=== PATIENT | female | born 1995 | race Caucasian/White ===

== ENCOUNTER 2017-01-14 11:50 | Emergency (ER) | payer BC ==
--- NOTE | 2017-01-14 12:11 | CPEKG ---
Heart Rate: 111 RR Interval: 541 P-R Interval: 132 QRSD Interval: 76 QT Interval: 328 QTC Interval: 446 P Taft: 67 QRS Taft: 82 T Wave Taft: 39 EKG Severity - OTHERWISE NORMAL ECG - EKG Impression: SINUS TACHYCARDIA Electronically Signed By: Cheng Gilbert 15-Jan-2017 10:04:16
[2017-01-14 12:32] LABS: % IMMATURE GRANULYOCYTES 0.3 % (0.0-1.1); ABSOLUTE IMMATURE GRANULOCYTES 0.04 10^3/uL (0.00-0.10); ADD DIFF? NO; ADD MORPH? NO; ADD SCAN? NO; ATYPICAL LYMPHOCYTE FLAG 10 (0-99); FRAGMENT RBC FLAG 0 (0-99); HEMATOCRIT 45.9 % (38.0-47.0); HEMOGLOBIN 15.8 g/dL (12.6-16.3); LEFT SHIFT FLG 0 (0-99); LIPEMIA HEMOLYSIS FLAG 90 (0-99); MEAN CELL HEMOGLOBIN 29.2 pg (27.9-34.1); MEAN CELL HEMOGLOBIN CONCENTR. 34.4 g/dL (32.4-36.7); MEAN CELL VOLUME 84.8 fL (81.5-99.8); PLATELET CLUMPS FLAG 0 (0-99); PLATELET COUNT 279 10^3/uL (150-400); RED BLOOD CELL COUNT 5.41 10^6/uL (4.18-5.33); RED CELL DISTRIBUTION WIDTH 12.9 % (11.5-15.2)
[2017-01-14 13:17] LABS: TROPONIN I < 0.012 ng/mL (0-0.034)
[2017-01-14 13:52] LABS: ANION GAP 13 mEq/L (8-16); CALCIUM 10.2 mg/dL (8.5-10.4); CARBON DIOXIDE 20 mEq/l (22-31); CHLORIDE 109 mEq/L (97-110); CREATININE 0.7 mg/dL (0.6-1.0); GLOMERULAR FILTRATION RATE > 60; GLUCOSE 94 mg/dL (70-100); POTASSIUM 4.3 mEq/L (3.5-5.2); SODIUM 142 mEq/L (134-144)
[2017-01-14] MEDS ORDERED: IOPAMIDOL (ISOVUE-370) 150 ML BTL IV ONE (14:14)
[2017-01-14 14:22] VITALS: RESP 20
--- NOTE | 2017-01-14 15:10 | EDPHY ---
H & P Stated Complaint: CHEST PAIN AND PAIN DOWN L ARM SINCE LAST NIGHT SENT FROM [facility] – [place], [place] Time Seen by Provider: 01/14/17 12:06 HPI/ROS: Chief complaint: Chest pain History of present illness: This is a 21-year-old female who presents to the emergency department for evaluation of chest pain. Patient reports the onset of symptoms yesterday. Symptoms have been persistent. She describes a sharp pain in the left upper part of the chest. It is worse with deep breathing. She has had associated trouble breathing. She denies specific precipitating factors. She denies alleviating factors. She denies other associated signs or symptoms including no fevers or cold-like symptoms, no nausea, vomiting or diarrhea, no abdominal pain, no pain or swelling in the legs. She has never had similar. Review of systems: A 10 point review of systems was obtained and other than described above is negative - Personal History LMP (Females 10-55): Extended Cycle BCP/Inj Current Tetanus/Diphtheria Vaccine: Yes Current Tetanus Diphtheria and Acellular Pertussis (TDAP): Yes - Medical/Surgical History Hx Asthma: No Hx Chronic Respiratory Disease: No Hx Diabetes: No Hx Cardiac Disease: No Hx Renal Disease: No Hx Cirrhosis: No Hx Alcoholism: No Hx HIV/AIDS: No Hx Splenectomy or Spleen Trauma: No Other PMH: DENIES - Social History Smoking Status: Never smoked - Physical Exam Exam: General Appearance: Alert, nontoxic. Eyes: Pupils equal and round no pallor or injection. ENT, Mouth: Mucous membranes moist. Respiratory: There are no retractions, lungs are clear to auscultation. Cardiovascular: Regular rate and rhythm. Gastrointestinal: Abdomen is soft and nontender, no masses, bowel sounds normal. Neurological: Alert and oriented x4. Strength and sensation intact and symmetrical. Skin: Warm and dry, no rashes. Musculoskeletal: Neck is supple nontender. Extremities are symmetrical, full range of motion. Psychiatric: Patient is tearful and appears very anxious Constitutional: Initial Vital Signs Temperature (C) 36.7 C 01/14/17 11:58 Heart Rate 108 H 01/14/17 11:58 Respiratory Rate 18 01/14/17 11:58 Blood Pressure 128/65 H 01/14/17 11:58 O2 Sat (%) 96 01/14/17 11:58 O2 Delivery Mode Room Air Allergies/Adverse Reactions: No Known Allergies Allergy (Unverified 01/14/17 12:01) Home Medications: Medication Instructions Recorded Control Implant 01/14/17 Hydrocodone/APAP 325 [[place] 1 tab PO Q4 #6 tab 01/14/17 5325 (*)] Medical Decision Making - Diagnostics Imaging: CTA of the chest is negative for acute findings, left upper lobe nodule is noted ED Course/Re-evaluation: Patient discussed with my secondary supervising physician Dr. Reese Mohr. Patient presents to the emergency department for evaluation of chest pain. On presentation she is nontoxic. She is very anxious. Vital signs show mild tachycardia otherwise stable. Blood studies are obtained, leukocytosis of 15, 000 is noted of unclear significance. D-dimer is mildly elevated. Therefore CTA of the chest is obtained and negative for acute PE. EKG unremarkable. I have discussed with patient is not clear as to the cause of her symptoms. However I do not appreciate need for further emergency department or inpatient management. Patient will be discharged home. Home care is discussed. She is referred to a primary care doctor for further evaluation and care. Strict return precautions are given. Patient voiced understanding and agreement with plan. Differential Diagnosis: Included but not limited to pulmonary embolism, pulmonary infections, pneumothorax, cardiac dysrhythmias, ACS, GERD, musculoskeletal pain, anxiety - Data Points Laboratory Results: Laboratory Results 01/14/17 12:15 01/14/17 12:15 01/14/17 01/14/17 01/14/17 12:15 12:15 12:15 WBC RBC Hgb Hct MCV MCH MCHC RDW Plt Count MPV Neut % (Auto) Lymph % (Auto) [place] % (Auto) Eos % (Auto) Baso % (Auto) Nucleat RBC Rel Count Absolute Neuts (auto) Absolute Lymphs (auto) Absolute Monos (auto) Absolute Eos (auto) Absolute Basos (auto) Absolute Nucleated RBC Immature Gran % Immature Gran # D-Dimer 0.70 ug/mLFEU H ug/mLFEU (0.00-0.50) Sodium 142 mEq/L mEq/L (134-144) Potassium 4.3 mEq/L mEq/L (3.5-5.2) Chloride 109 mEq/L mEq/L (97-110) Carbon Dioxide 20 mEq/l L mEq/l (22-31) Anion Gap 13 mEq/L mEq/L (8-16) BUN 12 mg/dL mg/dL (7-23) Creatinine 0.7 mg/dL mg/dL (0.6-1.0) Estimated GFR > 60 Glucose 94 mg/dL mg/dL (70-100) Calcium 10.2 mg/dL mg/dL (8.5-10.4) Troponin I < 0.012 ng/mL ng/mL (0-0.034) Beta HCG, Qual NEGATIVE 01/14/17 12:15 WBC 15.10 10^3/uL H 10^3/uL (3.80-9.50) RBC 5.41 10^6/uL H 10^6/uL (4.18-5.33) Hgb 15.8 g/dL g/dL (12.6-16.3) Hct 45.9 % % (38.0-47.0) MCV 84.8 fL fL (81.5-99.8) MCH 29.2 pg pg (27.9-34.1) MCHC 34.4 g/dL g/dL (32.4-36.7) RDW 12.9 % % (11.5-15.2) Plt Count 279 10^3/uL 10^3/uL (150-400) MPV 12.0 fL H fL (8.7-11.7) Neut % (Auto) 70.9 % % (39.3-74.2) Lymph % (Auto) 19.5 % % (15.0-45.0) [place] % (Auto) 8.1 % % (4.5-13.0) Eos % (Auto) 0.7 % % (0.6-7.6) Baso % (Auto) 0.5 % % (0.3-1.7) Nucleat RBC Rel Count 0.0 % % (0.0-0.2) Absolute Neuts (auto) 10.71 10^3/uL H 10^3/uL (1.70-6.50) Absolute Lymphs (auto) 2.95 10^3/uL 10^3/uL (1.00-3.00) Absolute Monos (auto) 1.22 10^3/uL H 10^3/uL (0.30-0.80) Absolute Eos (auto) 0.11 10^3/uL 10^3/uL (0.03-0.40) Absolute Basos (auto) 0.07 10^3/uL 10^3/uL (0.02-0.10) Absolute Nucleated RBC 0.00 10^3/uL 10^3/uL (0-0.01) Immature Gran % 0.3 % % (0.0-1.1) Immature Gran # 0.04 10^3/uL 10^3/uL (0.00-0.10) D-Dimer Sodium Potassium Chloride Carbon Dioxide Anion Gap BUN Creatinine Estimated GFR Glucose Calcium Troponin I Beta HCG, Qual Departure - Departure Disposition: Home, Routine, Self-Care Clinical Impression: Chest pain Qualifiers: Chest pain type: unspecified Qualified Code(s): R07.9 - Chest pain, unspecified Condition: Good Instructions: Chest Pain (ED) Additional Instructions: Follow-up with primary care doctor for recheck for continued evaluation and care Please let your primary care doctor know that a small lung nodule was noted in your left upper lung field You have been prescribed [[place]] for pain. [[place]] contains Tylenol, do not take extra Tylenol/acetaminophen/Apap with it. It is sedating. If symptoms worsen or new symptoms develop return to the emergency department for recheck Referrals: MOY BARROW [Other] - As per Instructions Lilian Mixon MD [Medical Doctor] - As per Instructions Prescriptions: Hydrocodone/APAP 5/325 [[place] 5/325 (*)] 1 tab PO Q4 #6 tab
[2017-01-14 15:20] VITALS: BP 122/67; PULSE 105; TEMP 98.8; O2SAT 96
[2017-01-14 15:26] LABS: BILIRUBIN,TOTAL 0.6 mg/dL (0.1-1.4); BILIRUBIN-CONJUGATED 0.4 mg/dL (0.0-0.5); BILIRUBIN-UNCONJUGATED 0.2 mg/dL (0.0-1.1); TOTAL PROTEIN 8.6 g/dL (6.3-8.2)
== END 2017-01-14 15:29 | disposition home or self-care (01) ==
DX: R07.9 Chest pain, unspecified (principal)
CPT/HCPCS: Q9967

== ENCOUNTER → 2019-04-09 | Outpatient (CLI) | payer BC | LOC: BMCIMAGING 17:22 | PROVIDERS: ATTEND Emergency Medicine | DX: M79.675 Pain in left toe(s) (principal) ==